=== PATIENT | female | born 1965 | race American Indian/Alaskan Native ===

== ENCOUNTER 2021-07-03 10:09 | Emergency (ER) | payer SELFPAY ==
[2021-07-03 10:55] VITALS: BP 118/68
--- NOTE | 2021-07-03 12:28 | Event Note ---
ED Screening Note ED Screening Note: pelvic pain for a week reports she was hospitalized in may 07 and diagnosed with nephrolithiasis, UTI, PNA, OK she currently has a ureteral stent in place went to urologist two days ago and was advised she needs a CT scan but she reports that she was not able to get it due to monetary issues she denies any fever, n/v/d This initial assessment/diagnostic orders/clinical plan/treatment(s) is/are subject to change based on patients health status, clinical progression and re- assessment by fellow clinical providers in the ED. Further treatment and workup at subsequent clinical providers discretion. Patient/guardian urged not to elope from the ED as their condition may be serious if not clinically assessed and managed. Initial orders include: labs, urine, ct abd pelvis
--- NOTE | 2021-07-03 13:35 | Cat Scan Report ---
CT ABDOMEN AND PELVIS WITHOUT CONTRAST INDICATION / CLINICAL INFORMATION: Pelvic pain, recently diagnosed UTI/ureteral stone with stent placement. TECHNIQUE: Axial CT images were obtained through the abdomen and pelvis without IV contrast. All CT scans at [facility] location are performed using CT dose reduction for ALARA by means of automated exposure control. COMPARISON: None available. FINDINGS: LOWER CHEST: There are scattered bibasilar groundglass opacities, right greater than left. No other s ignificant abnormality. LIVER: No significant abnormality. GALLBLADDER: No significant abnormality. BILE DUCTS: No significant abnormality. PANCREAS: No significant abnormality. SPLEEN: No significant abnormality. ADRENALS: No significant abnormality. RIGHT KIDNEY / URETER: A right ureteral stent is present with the cranial pigtail located along the p roximal third of the ureter and the caudal pigtail located within the bladder. A 4 mm stone is seen a long the distal third of the right ureter just above the acetabulum and approximately 4 cm from the U VJ on image 126 of series 2. No other stones are identified. There is no hydroureteronephrosis or oth er significant abnormality.. LEFT KIDNEY / URETER: No significant abnormality. STOMACH / SMALL BOWEL: No significant abnormality. COLON: No significant abnormality. APPENDIX: Not seen. PERITONEUM: No free fluid. No free air. No fluid collection. LYMPH NODES: No significant adenopathy. AORTA / ARTERIES: Normal caliber of the aorta with mild aortoiliac atherosclerosis. IVC / VEINS: No significant abnormality. URINARY BLADDER: No significant abnormality. REPRODUCTIVE ORGANS: No significant abnormality. ADDITIONAL FINDINGS: None. SKELETAL SYSTEM: No acute abnormality. Mild degenerative changes are seen along the spine. IMPRESSION: 1. 4 mm nonobstructive distal right ureteral stone as above. 2. Malpositioned right ureteral stent has described above. 3. Nonspecific bibasilar groundglass pulmonary opacities could represent atypical viral pneumonia. Pl ease correlate with the clinical findings. Signer Name: Cezar Ramirez MD Signed: 07/03/2021 1:30 PM Workstation Name: [id number]
[2021-07-03 13:41] LABS: Basophils # (Auto) 0.1 K/mm3 (0.0-0.1); Eosinophils # (Auto) 0.1 K/mm3 (0.0-0.4); Eosinophils % (Auto) 1.8 % (0.0-4.3); Hematocrit 37.5 % (30.3-42.9); Hemoglobin 12.3 gm/dl (10.1-14.3); Lymphocytes # (Auto) 2.5 K/mm3 (1.2-5.4); Lymphocytes % (Auto) 37.2 % (13.4-35.0); Mean Corpuscular HGB Conc 33 % (30-34); Mean Corpuscular Volume 84 fl (79-97); Monocytes # (Auto) 0.5 K/mm3 (0.0-0.8); Monocytes % (Auto) 7.4 % (0.0-7.3); Platelet Count 391 K/mm3 (140-440); Red Blood Count 4.49 M/mm3 (3.65-5.03); Red Cell Distribution Width 13.2 % (13.2-15.2)
[2021-07-03 13:56] LABS: Alanine Aminotransferase 22 units/L (7-56); Albumin 3.9 g/dL (3.9-5); BUN/Creatinine Ratio 11; Blood Urea Nitrogen 9 mg/dL (7-17); Hemolysis Index 7
--- NOTE | 2021-07-03 15:10 | Emergency Department Report ---
ED Abdominal Pain HPI - General Chief Complaint: Abdominal Pain Stated Complaint: PAIN IN VAGINA Time Seen by Provider: 07/03/21 12:24 Source: patient Mode of arrival: Ambulatory Limitations: No Limitations - History of Present Illness Initial Comments: Patient is 56 years old female with a recent diagnosis of kidney stone status post ureteric stent 3 weeks ago. Patient presented to the ER complaining of suprapubic abdominal pain for the last 2 weeks. Patient described her pain as sharp with no radiation. Patient denied any fever or chills. No nausea or vomiting. Patient stated that she followed by [facility] urologist and he told her that he will take her stent. Complaint: abdominal pain -: week(s) Location: suprapubic Radiation: none - Related Data Allergies Allergy/AdvReac Type Severity Reaction Status Date / Time codeine Allergy Swelling Verified 07/03/21 10:51 ED Review of Systems ROS: Stated complaint: PAIN IN VAGINA Other details as noted in HPI Comment: All other systems reviewed and negative Constitutional: denies: chills, fever Respiratory: denies: cough, shortness of breath, SOB with exertion Cardiovascular: denies: chest pain, palpitations Gastrointestinal: abdominal pain. denies: nausea, vomiting Musculoskeletal: denies: back pain Neurological: denies: headache, weakness ED Past Medical Hx - Past Medical History Hx Heart Attack/AMI: Yes Hx Kidney Stones: Yes - Surgical History Additional Surgical History: STENTS FOR KIDNEY STONES ED Physical Exam - General Limitations: No Limitations General appearance: alert, in no apparent distress - Head Head exam: Present: atraumatic, normocephalic, normal inspection - Eye Eye exam: Present: normal appearance, PERRL - ENT ENT exam: Present: normal exam, normal orophraynx, mucous membranes moist - Neck Neck exam: Present: normal inspection, full ROM. Absent: tenderness, meningismus - Respiratory Respiratory exam: Present: normal lung sounds bilaterally - Cardiovascular Cardiovascular Exam: Present: regular rate, normal rhythm, normal heart sounds - GI/Abdominal GI/Abdominal exam: Present: soft, normal bowel sounds. Absent: distended, tenderness, guarding, rebound, rigid, mass, bruit, pulsatile mass, hernia - Extremities Exam Extremities exam: Present: normal inspection, full ROM, normal capillary refill. Absent: tenderness, pedal edema, joint swelling, calf tenderness - Back Exam Back exam: Present: normal inspection, full ROM. Absent: CVA tenderness (R), CVA tenderness (L) - Neurological Exam Neurological exam: Present: alert, oriented X3, CN II-XII intact, normal gait, reflexes normal. Absent: motor sensory deficit - Psychiatric Psychiatric exam: Present: normal mood - Skin Skin exam: Present: warm, intact, normal color ED Course Vital Signs 07/03/21 10:54 Temperature 98.8 F Pulse Rate 71 Respiratory 18 Rate Blood Pressure 118/68 O2 Sat by Pulse 99 Oximetry ED Medical Decision Making - Lab Data Result diagrams: 07/03/21 13:21 07/03/21 13:21 - Radiology Data Radiology results: report reviewed - Medical Decision Making Patient is 56 years old female with a recent diagnosis of kidney stone status post ureteric stent 3 weeks ago. Patient presented to the ER complaining of s uprapubic abdominal pain for the last 2 weeks. Patient described her pain as sharp with no radiation. Patient denied any fever or chills. No nausea or vomiting. Patient stated that she followed by [facility] urologist and he told her that he will take her stent. Labs reviewed and is unremarkable. CT abdomen and pelvis showed a malpositioned ureteral stent. Patient informed about her CT results and strongly advised to follow-up with her urologist in the next 2 to 3 days. Patient given prescript ion for Percocet and advised to return to the ER if she develop any new symptoms. Critical care attestation.: If time is entered above; I have spent that time in minutes in the direct care of this critically ill patient, excluding procedure time. ED Disposition Clinical Impression: Acute abdominal pain, Ureteral stent displacement Disposition: 01 HOME / SELF CARE / HOMELESS Is pt being admited?: No Condition: Stable Instructions: Abdominal Pain (ED), Abdominal Pain, Adult, Ureteral Stent Implantation, Care After, Kidney Stones Referrals: PRIMARY CARE, [Primary Care Provider] - 3-5 Days
[2021-07-03 15:57] LABS: Bilirubin,Urine NEG (Negative); Blood,Urine LG (Negative); Color,Urine Straw (Yellow); Protein,Urine <15 mg/dL mg/dL (Negative); Urobilinogen,Urine < 2.0 mg/dL (<2.0)
[2021-07-03 16:00] LABS: RBC,Urine > 182.0 /HPF (0.0-6.0)
== END 2021-07-03 15:54 | disposition home or self-care (01) ==
LOC: ED 10:09
DX: T83.122A Displacement of indwelling ureteral stent, initial encounter (principal); R10.30 Lower abdominal pain, unspecified; Z87.442 Personal history of urinary calculi; Z88.5 Allergy status to narcotic agent; Z79.899 Other long term (current) drug therapy; Y92.89 Other specified places as the place of occurrence of the external cause; Y83.8 Other surgical procedures as the cause of abnormal reaction of the patient, or of later complication, without mention of misadventure at the time of the procedure
CPT/HCPCS: 36415; 74176; 80053; 81001; 85025; 87086; 99284